=== PATIENT | female | born 1990 | race Two or more races ===

== ENCOUNTER 2017-02-28 21:24 | Emergency (ER) | payer MEDICAID, OTHER ==
[~2017-02-28] VITALS: Ht 149.9 cm; Wt 47.6 kg
[2017-02-28 21:45] VITALS: BP 107/72
[2017-03-01] MEDS ORDERED: CYCLOBENZAPRINE HCL 10 MG TAB PO ONE (01:45)
[2017-03-01] MEDS ORDERED: IBUPROFEN 600 MG TAB PO ONE (01:45)
== END 2017-03-01 02:45 | disposition home or self-care (01) ==
LOC: EDBD 21:24 → ER 21:44
DX: S13.9XXA Sprain of joints and ligaments of unspecified parts of neck, initial encounter (principal); S33.5XXA Sprain of ligaments of lumbar spine, initial encounter; S20.219A Contusion of unspecified front wall of thorax, initial encounter; S00.93XA Contusion of unspecified part of head, initial encounter; R42 Dizziness and giddiness; V43.62XA Car passenger injured in collision with other type car in traffic accident, initial encounter; Y93.89 Activity, other specified; Y92.89 Other specified places as the place of occurrence of the external cause; Y99.8 Other external cause status
CPT/HCPCS: 70450; 72125; 72128; 72131; 81025